=== PATIENT | female | born 1985 | race Caucasian/White ===

== ENCOUNTER 2018-03-13 14:55 | Emergency (ER) | payer MEDICAID ==
[~2018-03-13] VITALS: Ht 157.5 cm; Wt 73.5 kg
[2018-03-13 15:15] VITALS: BP 116/73
--- NOTE | 2018-03-13 15:24 | NUR ---
PT AMBULATED TO LOBBY. VSS.
--- NOTE | 2018-03-13 15:53 | NUR ---
NO CHANGE IN STATUS. PT WILL CONTINUE TO WAIT IN LOBBY. VSS.
--- NOTE | 2018-03-13 16:07 | NUR ---
PATIENT AMBULATED TO ER BED 3.
--- NOTE | 2018-03-13 16:09 | NUR ---
PATIENT PRESENTS TO ED WITH C/O BLOOD IN THE URINE ALONG WITH URGENCY, FREQUENCY, AND BURNING X 1 DAY. PAIN 5/10 IN LOWER BACK AND WHILE URINATING. VSS; PATIENT POSITIONED FOR COMFORT; HOB ELEVATED; BEDRAILS UP X2; BED DOWN. ER MD MADE AWARE OF PT STATUS.
--- NOTE | 2018-03-13 18:37 | NUR ---
Patient being evaluated by physician at bedside.
[2018-03-13 19:02] VITALS: BP 116/73
--- NOTE | 2018-03-13 19:02 | NUR ---
Patient discharged with v/s stable. Written and verbal after care instructions given and explained. Patient alert, oriented and verbalized understanding of instructions. Ambulatory with steady gait. All questions addressed prior to discharge. ID band removed. Patient advised to follow up with PMD. Rx of CIPRO, MOTRIN given. Patient educated on indication of medication including possible reaction and side effects. Opportunity to ask questions provided and answered.
== END 2018-03-13 19:02 | disposition home or self-care (01) ==
LOC: MED 14:55
DX: N39.0 Urinary tract infection, site not specified (principal); R31.9 Hematuria, unspecified; E11.9 Type 2 diabetes mellitus without complications
CPT/HCPCS: 81002; 81025; 82948; 99283